=== PATIENT | male | born 2000 | race Hispanic/Latino ===

== ENCOUNTER 2024-10-12 19:37 | Emergency (ER) | payer SELFPAY ==
[~2024-10-12] VITALS: Ht 177.8 cm; Wt 84.4 kg
[2024-10-12 19:51] VITALS: BP 150/75; PULSE 74; RESP 20; TEMP 98.6; O2SAT 100
[2024-10-12] MEDS ORDERED: CEPH500B PO (19:57)
--- NOTE | 2024-10-12 19:59 | ERN ---
General Chief Complaint: Abscess Stated Complaint: C/O ABSCESS TO LEFT BUTTOCK Time Seen by MD: 19:43 Source: patient History of Present Illness Initial Comments Patient is a healthy 24-year-old male with no past medical history, no meds, no allergies. He comes in with a left-sided painful bump on his left buttocks present for four days. He is afebrile. This is the 1st time he has had something like this. He reports no trauma no injection nothing that he can think of that created this painful bump. Allergies: Coded Allergies: No Known Allergies (Unverified Allergy, Unknown, 10/12/24) Past Medical History Past Medical History: No Pertinent History Past Surgical History: None Constitutional: (-) chills, (-) diaphoresis, (-) fever, (-) malaise, (-) weakness, (-) other documentation EENTM: (-) eye pain, (-) blurred vision, (-) tearing, (-) double vision, (-) ear pain, (-) ear discharge, (-) nose pain, (-) nose congestion, (-) throat pain, (-) Throat swelling, (-) mouth pain, (-) tooth pain, (-) mouth swelling, (-) other documentation Respiratory: (-) cough, (-) orthopnea, (-) short of breath, (-) stridor, (-) wheezing, (-) other documentation Cardiovascular: (-) chest pain, (-) edema, (-) palpitations, (-) syncope, (-) dyspnea on exertion, (-) other documentation Gastrointestinal/Abdominal: (-) nausea, (-) vomiting, (-) diarrhea, (-) abdominal pain, (-) abdominal distention, (-) constipation, (-) rectal bleeding, (-) dark stool/melena, (-) other documentation Genitourinary: (-) penile discharge, (-) dysuria, (-) frequency, (-) hematuria, (-) pain, (-) other documentation Musculoskeletal: (-) Neck pain, (-) back pain, (-) Flank Pain, (-) joint pain, (-) joint swelling, (-) muscle pain, (-) muscle stiffness, (-) gout, (-) other documentation Skin: (-) laceration, (-) contusion, (-) abrasion, (-) abscess, (-) rash, (-) change in color, (-) change in hair, (-) change in nails, (-) diaphoresis, (-) dryness, (-) other documentation Physical Exam General Appearance: (+) mild distress Orientation: (+) oriented x 3 Rectal Comment Left buttocks has a area that is soft but raised and tender. There was no erythema no induration no swelling just tenderness. MDM Patient has a subcutaneous tender mass that most likely represents an abscess. Maybe an infected sebaceous gland. Location is a bit unusual for a fistula. Patient's exam is benign. I will order 10 days of p.o. antibiotics and discharge the patient home. ED Course Vital Signs Date Time Temp Pulse Resp B/P (MAP) Pulse Ox O2 Delivery O2 Flow Rate FiO2 10/12/24 19:40 98.2 78 20 143/75 99 Room Air DX & DISP Disposition: Discharge Departure Impression: Primary Impression: Left buttock abscess Condition: Stable Scripts Cephalexin Monohydrate (Keflex) 500 Mg Cap 500 MG PO QID for 10 Days, #40 CAP Prov: MAAME TAPIA MD 10/12/24 Additional Instructions: Please return if mask it is more tender red and harder or if you start having fevers and chills. Also please return if it starts draining. Referrals: SELF,REFERRAL (PCP) MAAME TAPIA MD Oct 12, 2024 19:59
== END 2024-10-12 20:04 | disposition home or self-care (01) ==
LOC: EDH 19:37
DX: L02.31 Cutaneous abscess of buttock (principal)
CPT/HCPCS: 99283